=== PATIENT | male | born 1965 | race Caucasian/White ===

== ENCOUNTER → 2016-12-14 | Outpatient (CLI) | payer OTHER ==
[~2016-12-14] MED LIST: DIVA250T PO; KETOROLAC IM; MULT-506 PO; ONDA4TAB65 PO; SUMA100T16 PO; SUMA6KIT IM; TIMO10TA2 PO
[2016-12-14 12:37] LABS: BASO % 0.5 %; BASO ABS # 0.03 K/uL (0-0.2); COMPLETE YES; EOS % 1.8 %; HEMATOCRIT 47.9 % (42-52); IG% 0.3 %; LYMPH % 29.6 %; LYMPH ABS # 1.85 K/uL (1.2-3.4); MEAN CELL VOLUME 92.5 fL (80-100); MEAN CORPUSCULAR HEMOGLOBIN 31.1 pg (25-34); MEAN CORPUSCULAR HGB CONC 33.6 g/dl (32-36); MEAN PLATELET VOLUME 10.7 fL (7.4-10.4); MONO % 11.3 %; NEUT % 56.5 %; PLATELET COUNT 158 K/uL (130-400); RED BLOOD COUNT 5.18 M/uL (4.7-6.1); WHITE BLOOD COUNT 6.26 K/uL (4.8-10.8)
[2016-12-14 13:25] LABS: CALCIUM 8.6 mg/dl (8.5-10.1)
[2016-12-14 13:26] LABS: ALT/SGPT 27 U/L (12-78); BLOOD UREA NITROGEN 19 mg/dl (7-18); BUN/CREATININE RATIO 17.2 (10-20); CARBON DIOXIDE 31 mmol/L (21-32); CHLORIDE 105 mmol/L (98-107); GLUCOSE 82 mg/dl (70-99); SODIUM 143 mmol/L (136-145)
[2016-12-14 13:28] LABS: ALB/GLOB RATIO 1.2 (0.9-2); ALKALINE PHOSPHATASE 70 U/L (45-117); AST/SGOT 17 U/L (15-37)
[2016-12-14 13:29] LABS: CHOLESTEROL/HDL RATIO 3.8; PROSTATE SPECIFIC ANTIGEN 0.432 ng/ml (0.000-4.000)
== END | disposition home or self-care (01) ==
LOC: C.LAB1850 11:19
PROVIDERS: ATTEND Internal Medicine
DX: G43.719 Chronic migraine without aura, intractable, without status migrainosus (principal)